=== PATIENT | male | born 1980 | race Two or more races ===

== ENCOUNTER 2017-08-22 09:10 | Outpatient (CLI) | payer OTHER | END 2017-08-22 23:59 | disposition home or self-care (01) | LOC: WOU 09:10 | PROVIDERS: ATTEND Podiatrist Foot & Ankle Surgery | DX: B35.1 Tinea unguium (principal); L60.3 Nail dystrophy; L85.1 Acquired keratosis [keratoderma] palmaris et plantaris | CPT/HCPCS: G0463 ==